=== PATIENT | male | born 1955 | race Caucasian/White ===

== ENCOUNTER 2019-07-13 05:24 | Day surgery (SDC) | payer OTHER, MEDICARE ==
[2019-07-12 12:17] LABS: BASOPHILS 0.2 % (0-2); EOSINOPHILS 4.5 % (0-7); HEMATOCRIT 35.9 % (42.0-54.0); IMMATURE GRANULOCYTES 0.2 % (0-5); MCH 26.7 pg (26.0-34.0); MCHC 33.4 g/dL (31.0-37.0); MEAN PLATELET VOLUME 10.2 fL (7.4-10.4); NEUTROPHILS 65.1 % (40-80); PLATELET COUNT 176 10x3/uL (130-400); RBC 4.49 10x6/uL (4.20-6.10); RDW 14.4 % (11.5-14.5); WBC 11.7 10x3/uL (4.8-10.8)
[2019-07-12 12:25] LABS: CALCIUM 9.4 mg/dL (8.5-10.1); CARBON DIOXIDE 33.3 mmol/L (21.0-32.0); CREATININE - SERUM 4.5 mg/dL (0.6-1.3); POTASSIUM - SERUM 3.3 mmol/L (3.5-5.1)
[2019-07-12 12:46] LABS: INR 1.09 (0.85-1.17); PROTIME 13.6 SECONDS (11.6-15.0)
[~2019-07-13] VITALS: Ht 190.5 cm; Wt 114.8 kg
[~2019-07-13 05:24] MED LIST: ASPIRIN EC81 M1 PO; CARAFATE1 G PO; ELIQUIS5 MG PO; FUROSEMIDE40 MG PO; GLUCOTROL 5 MG T5 MG PO; HUMALOG 30100 UNITS/ SC; HYDRALAZINE HCL50 MG PO; LEVEMIR FL100 UNIT/1 SC; LIPITOR40 MG PO; METOLAZONE2.5 MG PO; NORVASC10 MG PO; TENORMIN50 MG PO; TRADJENTA5 MG PO
[2019-07-13 06:35] VITALS: Ht 190.5 cm; Wt 114.8 kg
[2019-07-13] MEDS ORDERED: HYDROCODON-ACE1 EAC7 PO (10:20)
--- NOTE | 2019-07-13 11:26 | NUR ---
PT DC INSTRUCTIONS REVIEWED AT THIS TIME, PT VERBALIZES UNDERSTANDING. PT IV REMOVED AT THIS TIME, INTACT, NO REDNESS OR SWELLING NOTED AT SITE.
--- NOTE | 2019-07-13 11:32 | NUR ---
PT LEAVING OPS AT THIS TIME VIA WC, NAD NOTED.
--- NOTE | 2019-07-24 14:59 | OP ---
PATIENT NAME: LISA SANTORO MEDICAL RECORD: [id number] :51 LOCATION:[facility] ADMISSION DATE: SURGEON: LIAM OLIVERA MD DATE OF OPERATION: 07/13/2019 PREOPERATIVE DIAGNOSIS: Chronic kidney disease stage V. POSTOPERATIVE DIAGNOSIS: Chronic kidney disease stage V. OPERATION PERFORMED: Creation of a left distal brachial artery to cephalic vein arteriovenous fistula. SURGEON: Liam Olivera MD ANESTHESIA: Regional nerve block plus TIVA per [employer]. REFERRING PHYSICIANS: Dr. Morris and Dr. Ji PREOPERATIVE NOTE: Mr. Santoro is a 64-year-old white male diabetic patient with worsening renal insufficiency, now CKD V, anticipating need for dialysis. He was referred to me for creation of dialysis access. DESCRIPTION OF PROCEDURE: Under anesthesia in supine position, the patient was prepped and draped in a sterile manner. Nitroglycerin ointment was applied to the intact skin of the arm and forearm, and a Winifred drain used as a proximal venous tourniquet. I examined him with Duplex ultrasound and noted that the cephalic vein at the wrist was of good caliber, but deviated over on to the back side of the forearm and hand and would have required considerable dissection and transposition to reach the radial artery anywhere distal to the mid forearm level. The brachial artery itself was borderline small and appeared to be fairly heavily calcified, and the brachial artery was large and not calcified, and the median cubital vein was of excellent caliber, and I elected to go ahead with a brachiocephalic AV fistula. A transverse incision was made, and the vessels exposed and controlled as needed with Silastic loops, and the vein was dissected and ligated distally with 3-0 Vicryl and transected and bevelled. The deep branch was doubly ligated and divided. The artery was controlled with Silastic loops, and I exposed and controlled the proximal radial artery and ulnar artery so that I could place the anastomosis as far distal on the brachial artery or onto the proximal radial artery as possible. The vein was flushed with heparinized saline. The artery was opened at the origin of the proximal radial artery, and the artery was flushed with heparinized saline. The vein was then anastomosed end of vein to side of artery with running 7-0 Prolene and when completed and the occluding loops were released, excellent flow developed immediately in the fistula and the suture line was hemostatic. There was excellent continuous pulsatile flow in the fistula, and there was excellent flow in the brachial artery above the anastomosis and pulsatile flow in the radial and ulnar arteries distally. The wound irrigated with saline solution, was closed with interrupted inverted 3-0 Vicryl and running intracuticular 4-0 Monocryl and Dermabond glue. It was further dressed with Maxorb Ag, Tegaderm, and Cavilon skin prep, and the patient awakened and returned to the recovery room in stable condition. There was minimal blood loss, less than 5 cc. Sponges, instruments, and needles were accounted for. No surgical specimen was submitted for histopathology and no drain was used. OPERATIVE REPORT [id number] LISA SANTORO The patient will be discharged today and return to see me in my office in 2 weeks. He is given a prescription for 10 tablets of [place] 5/325. He can take 1 or 2 p.o. every 4-6 hours as needed for pain. He is to keep the operative dressing dry. If needed, he can remove that dressing and redress the wound with clean dry sterile gauze. If there is no need to change the dressing, he should just leave it intact until I remove it in the office. The patient is on Eliquis chronically, and I would like him to go ahead and resume his usual b.i.d. dose of Eliquis starting this evening. TRANSINT:[id number] Voice Confirmation ID: [id number] DOCUMENT ID: [id number] LIAM OLIVERA MD at 1459 CC: ADI JI MD and JUSTIN MORRIS MD [id number] DICTATION DATE: 07/13/19 1039 [facility] INSTRUCTOR: 07/13/19 1318 [facility] 07/13/19 [facility] [address] [place] [address]
== END 2019-07-13 11:32 | disposition home or self-care (01) ==
LOC: D.OPS 05:24 → D.PAN 08:00 → D.OPS 11:32
PROVIDERS: Surgery; ATTEND Internal Medicine Nephrology
DX: N18.5 Chronic kidney disease, stage 5 (principal)